=== PATIENT | female | born 1970 | race Caucasian/White ===

== ENCOUNTER 2018-06-07 01:09 | Outpatient (CLI) | payer BC, SELFPAY ==
--- NOTE | 2018-06-07 14:55 | DI.RPTCT_ITS ---
SYMPTOM/DIAGNOSIS: CHRONIC NANCE SINUSITIS, J32.4 UNSPECIFIED MYCOSIS B49 SIN[address]: 06/07 CT examination of the paranasal sinuses was performed without contrast administration. The visualized portions of the brain are unremarkable. The orbital structures appear intact. No upper cervical mass or adenopathy seen. Temporal bone structures appear normal. Mastoid air cells are clear. The sphenoid sinuses are clear. Mild mucoperiosteal thickening of right frontal sinus. Mild to moderate mucoperiosteal thickening ethmoid sinuses. Clear, left maxillary antrum. Moderate mucoperiosteal thickening, right maxillary antrum. Infundibulum of left maxillary ostiomeatal complex is patent. Infundibulum of right maxillary ostiomeatal complex is obstructed. There is increased soft tissue radiodensity in superior nasal cavity on the left which could represent nasal polyposis. CONCLUSION: Moderate chronic sinus disease as described above involving ethmoid , frontal and right maxillary sinus. Obstruction of infundibulum of right maxillary ostiomeatal complex noted.
== END 2018-06-07 01:10 ==
PROVIDERS: PCP Naturopath; Visit Provider Otolaryngology Otolaryngology/Facial Plastic Surgery
DX: J32.4 Chronic pansinusitis (principal); J34.89 Other specified disorders of nose and nasal sinuses; B49 Unspecified mycosis
CPT/HCPCS: 70486

== ENCOUNTER 2019-11-21 06:18 | Outpatient (CLI) | payer BC, SELFPAY ==
--- NOTE | 2019-11-21 12:34 | DI.MAMMO_ITS ---
EXAM: MG MAMMO SCREENING CLINICAL HISTORY: SCREENING, Z12.31. TECHNIQUE: Bilateral full field digital CC and MLO mammographic images were obtained with 3D tomosyn thesis and utilizing computer aided detection (CAD). COMPARISON: Available for comparison. FINDINGS: Masses/Architectural Distortion: None seen. Microcalcifications: No suspicious pleomorphic-type are seen. Skin Thickening/Nipple Retraction: None. IMPRESSION: 1. No significant interval change with no specific features of malignancy noted. 2. Unless there is more urgent need, screening mammography is recommended, as per [place] [employer] guidelines. ACR BI-RAD Category- 1 Negative Breast Density - Category B - Scattered areas of fibroglandular density A negative radiographic report should not delay biopsy if a dominant or clinically suspicious mass is present. Up to ten percent of cancers are not identified on mammography. A negative report may reinforce clinical impression. Adenosis and dense breasts may obscure an underlying neoplasm. False positive reports average 6 to 10%. Patient will receive a letter notifying them of these results.
== END 2019-11-21 06:38 ==
PROVIDERS: PCP Naturopath; Visit Provider Naturopath
DX: Z12.31 Encounter for screening mammogram for malignant neoplasm of breast (principal)
CPT/HCPCS: 77063; 77067

== ENCOUNTER 2022-01-18 01:53 | Outpatient (CLI) | payer BC, SELFPAY ==
--- NOTE | 2022-01-18 10:00 | DI.MAMMO_ITS ---
Exam(s) MAMMO SCREENING EXAM: MAMMO SCREENING CLINICAL HISTORY: SCREENING, Z12.31. TECHNIQUE: Bilateral full field digital CC and MLO mammographic images were obtained with 3D tomosyn thesis and utilizing computer aided detection (CAD). COMPARISON: Prior mammograms were reviewed, the most recent being November 2019. FINDINGS: There are no new spiculated masses nor malignant appearing microcalcification groups. There is no significant architectural distortion nor skin thickening-retraction. IMPRESSION: No radiographic evidence of malignancy. BI-RADS Category 1 - Negative Breast Density - Category B - Scattered areas of fibroglandular density Breast density Category C or D implies that the patient has dense breast tissue. Dense breast tissue can make it harder to find cancer on a mammogram. Dense breast tissue is also associated with an incr eased risk of breast cancer. This information about the result of the mammogram report was provided to the patient to raise their awareness. Use this report when you speak with the patient about their risks for breast cancer, which includes their family history. At that time, you may recommend additional screening tests (Ultrasoun d or MRI) as these tests may add significant information. A negative radiographic report should not delay biopsy if a dominant or clinically suspicious mass is present. Up to ten percent of cancers are not identified on mammography. A negative report may reinforce clinical impression. Adenosis and dense breasts may obscure an underlying neoplasm. False positive reports average 6 to 10%. Patient will receive a letter notifying them of these results.
== END 2022-01-18 02:13 ==
PROVIDERS: PCP Naturopath; Visit Provider Naturopath
DX: Z12.31 Encounter for screening mammogram for malignant neoplasm of breast (principal)
CPT/HCPCS: 77063; 77067

== ENCOUNTER 2023-03-09 02:15 | Outpatient (CLI) | payer BC, SELFPAY ==
--- NOTE | 2023-03-09 07:50 | DI.MAMMO_ITS ---
Exam(s) MAMMO SCREENING EXAM: MAMMO SCREENING CLINICAL HISTORY: SCREENING, Z12.31. TECHNIQUE: Bilateral full field digital CC and MLO mammographic images were obtained with 3D tomosyn thesis and utilizing computer aided detection (CAD). COMPARISON: Prior mammograms were reviewed. FINDINGS: There has been no significant change in the appearance and distribution of the fibroglandular tissue. There are no new spiculated masses nor malignant appearing microcalcification groups. There is no significant architectural distortion nor skin thickening-retraction. IMPRESSION: No radiographic evidence of malignancy. BI-RADS Category 1 - Negative Breast Density - Category B - Scattered areas of fibroglandular density Breast density Category C or D implies that the patient has dense breast tissue. Dense breast tissue can make it harder to find cancer on a mammogram. Dense breast tissue is also associated with an incr eased risk of breast cancer. This information about the result of the mammogram report was provided to the patient to raise their awareness. Use this report when you speak with the patient about their risks for breast cancer, which includes their family history. At that time, you may recommend additional screening tests (Ultrasoun d or MRI) as these tests may add significant information. A negative radiographic report should not delay biopsy if a dominant or clinically suspicious mass is present. Up to ten percent of cancers are not identified on mammography. A negative report may reinforce clinical impression. Adenosis and dense breasts may obscure an underlying neoplasm. False positive reports average 6 to 10%. Patient will receive a letter notifying them of these results.
== END 2023-03-09 02:35 ==
LOC: DI 02:16
PROVIDERS: PCP Naturopath; Visit Provider Registered Nurse Diabetes Educator
DX: Z12.31 Encounter for screening mammogram for malignant neoplasm of breast (principal)
CPT/HCPCS: 77063; 77067

== ENCOUNTER 2023-03-09 05:27 | Outpatient (CLI) | payer BC, SELFPAY ==
[2023-03-09 08:32] LABS: ALT 24 U/L (14-59); AST 17 U/L (15-37); Alkaline Phosphatase 110 U/L (46-116); Anion Gap 7.8 mmol/L (3-11); BUN 22 mg/dL (7-18); Bilirubin, Total 0.4 mg/dL (0.2-1.0); CO2 28.2 mmol/L (21.0-32.0); CREATININE 0.7 mg/dL (0.55-1.02); Calcium 9.2 mg/dL (8.5-10.1); Calculated LDL 120 mg/dL (<100); Chloride 105 mmol/L (98-107); Cholesterol 220 mg/dL (<200); Estimated GFR 104.65 (mL/min/1.73m2); Glucose 94 mg/dL (74-106); HDL Cholesterol 70 mg/dL (40-60); Potassium 4.3 mmol/L (3.5-5.1); Sodium 141 mmol/L (136-145); Total Protein 7.3 g/dL (6.4-8.2); Triglyceride 153 mg/dL (<150)
== END 2023-03-09 05:28 | disposition home or self-care (01) ==
LOC: LBO 05:27
PROVIDERS: PCP Naturopath; Visit Provider Registered Nurse Diabetes Educator
DX: Z13.1 Encounter for screening for diabetes mellitus (principal); Z13.220 Encounter for screening for lipoid disorders
CPT/HCPCS: 36415; 80053; 80061

== ENCOUNTER → 2024-03-22 04:06 | Outpatient (CLI) | payer BC, SELFPAY | PROVIDERS: PCP Naturopath; Visit Provider Registered Nurse Diabetes Educator | DX: Z12.31 Encounter for screening mammogram for malignant neoplasm of breast (principal) | CPT/HCPCS: 77063; 77067 ==

== ENCOUNTER 2025-06-24 08:58 | Outpatient (CLI) | payer BC, SELFPAY ==
--- NOTE | 2025-06-24 | DI.MAMMO_ITS ---
Exam(s) MAMMO SCREENING EXAM: MAMMO SCREENING CLINICAL HISTORY: SCREENING MAMMO Z12.31. TECHNIQUE: Bilateral full field digital CC and MLO mammographic images were obtained with 3D tomosynthesis and utilizing computer aided detection (CAD). COMPARISON: Prior mammograms were reviewed. FINDINGS: There has been no significant change in the appearance and distribution of the fibroglandular tissue. There are no new spiculated masses nor malignant appearing microcalcification groups. There is no significant architectural distortion nor skin thickening-retraction. IMPRESSION: No radiographic evidence of malignancy. BI-RADS Category 1 - Negative Breast Density - Category B - There are scattered areas of fibroglandular density. Breast density Category C or D implies that the patient has dense breast tissue. Dense breast tissue can make it harder to find cancer on a mammogram. Dense breast tissue is also associated with an increased risk of breast cancer. This information about the result of the mammogram report was provided to the patient to raise their awareness. Use this report when you speak with the patient about their risks for breast cancer, which includes their family history. At that time, you may recommend additional screening tests (Ultrasound or MRI) as these tests may add significant information. A negative radiographic report should not delay biopsy if a dominant or clinically suspicious mass is present. Up to ten percent of cancers are not identified on mammography. A negative report may reinforce clinical impression. Adenosis and dense breasts may obscure an underlying neoplasm. False positive reports average 6 to 10%. Patient will receive a letter notifying them of these results.
== END 2025-06-24 09:18 ==
PROVIDERS: PCP Naturopath; Visit Provider Registered Nurse Diabetes Educator
DX: Z12.31 Encounter for screening mammogram for malignant neoplasm of breast (principal)
CPT/HCPCS: 77063; 77067